=== PATIENT | female | born 1960 | race Caucasian/White ===

== ENCOUNTER → 2023-06-30 08:20 | Outpatient (REF) | payer BC, SELFPAY | LOC: HWRAD 08:20 | PROVIDERS: ATTENDING PHYSICIAN Psychiatry & Neurology Neurology; FAMILY PHYSICIAN Family Medicine | DX: I72.9 Aneurysm of unspecified site (principal) | CPT/HCPCS: 70496; 70498; Q9967 ==

== ENCOUNTER → 2023-07-18 08:54 | Outpatient (REF) | payer BC, SELFPAY | LOC: HWWDC 08:54 | PROVIDERS: ATTENDING PHYSICIAN Family Medicine | DX: Z12.31 Encounter for screening mammogram for malignant neoplasm of breast (principal) | CPT/HCPCS: 77063; 77067 ==

== ENCOUNTER → 2024-07-22 09:16 | Outpatient (REF) | payer BC, SELFPAY | LOC: HWWDC 09:16 | PROVIDERS: ATTENDING PHYSICIAN Obstetrics & Gynecology; FAMILY PHYSICIAN Family Medicine | DX: Z12.31 Encounter for screening mammogram for malignant neoplasm of breast (principal) | CPT/HCPCS: 77063; 77067 ==

== ENCOUNTER 2024-09-13 06:25 | Day surgery (SDC) | payer BC, SELFPAY | END 2024-09-13 14:08 | disposition home or self-care (01) | LOC: GI 06:25 | PROVIDERS: ATTENDING PHYSICIAN Internal Medicine | DX: Z12.11 Encounter for screening for malignant neoplasm of colon (principal); R19.5 Other fecal abnormalities; K64.8 Other hemorrhoids; K57.30 Diverticulosis of large intestine without perforation or abscess without bleeding; D12.2 Benign neoplasm of ascending colon | CPT/HCPCS: 45380; 88305 ==

== ENCOUNTER → 2024-09-16 12:40 | Outpatient (REF) | payer BC, SELFPAY | LOC: WDC 12:40 | PROVIDERS: ATTENDING PHYSICIAN Obstetrics & Gynecology | DX: R92.30 Dense breasts, unspecified (principal) | CPT/HCPCS: 76641 ==

== ENCOUNTER → 2025-03-21 13:36 | Outpatient (REF) | payer OTHER, MEDICARE, SELFPAY | LOC: RAD 13:36 | PROVIDERS: ATTENDING PHYSICIAN Internal Medicine Rheumatology; FAMILY PHYSICIAN Family Medicine | DX: M81.0 Age-related osteoporosis without current pathological fracture (principal) | CPT/HCPCS: 77080 ==